=== PATIENT | male | born 1960 | race Caucasian/White ===

== ENCOUNTER 2017-04-27 14:15 | Inpatient (IN) | payer OTHER ==
[~2017-04-27] VITALS: Ht 170.2 cm; Wt 81.0 kg
[2017-04-27] MEDS ORDERED: TIOT185 IH (14:24)
[2017-04-27] MEDS ORDERED: WARF3TAB29 PO (14:24)
[2017-04-27] MEDS ORDERED: AMLO-512 PO (14:24)
[2017-04-27] MEDS ORDERED: DOXY150T PO (14:24)
[2017-04-27] MEDS ORDERED: ALBU8.5H8 IH (14:24)
[2017-04-27] MEDS ORDERED: OMEP20 PO (14:24)
[2017-04-27] MEDS ORDERED: PRED20 PO (14:24)
[2017-04-27] MEDS ORDERED: HYDR25TA PO (14:24)
[2017-04-27] MEDS ORDERED: METH10 PO (14:24)
[2017-04-27] MEDS ORDERED: GABA-531 PO (14:24)
[2017-04-27] MEDS ORDERED: MONT10TA21 PO (14:24)
[2017-04-27] MEDS ORDERED: METO25 PO (14:24)
[2017-04-27] MEDS ORDERED: MOME13HF2 IH (14:24)
[2017-04-27] MEDS ORDERED: 0.9% SODIUM CHLORIDE 15 ML NEB SOLUTION NEB ONE ×2 (15:58→16:51)
[2017-04-27] MEDS ORDERED: IPRATROPIUM BROMIDE 0.5 MG/2.5 ML NEB SOLUTION NEB ONE (16:00)
[2017-04-27] MEDS ORDERED: MethylPREDNISolone SOD SUCC 125 MG/2 ML VIAL IVP ONE (16:00)
[2017-04-27] MEDS ORDERED: ALBUTEROL SULFATE 5 MG/ML 20 ML NEB SOLN [BULK] NEB ONE (16:00)
[2017-04-27 16:39] LABS: BASOPHILS # (AUTO) 0.07 K/uL (0.00-0.20); BASOPHILS % (AUTO) 0.4 % (0.0-2.0); EOSINOPHILS # (AUTO) 0.01 K/uL (0.00-0.70); EOSINOPHILS % (AUTO) 0.05 % (1.0-6.0); HEMATOCRIT 46.8 % (41-53); HEMOGLOBIN 15.5 g/dL (13.5-17.5); LYMPHOCYTES # (AUTO) 1.9 K/uL (1.0-4.8); LYMPHOCYTES % (AUTO) 9.7 % (22.0-44.0); MEAN CORPUSCULAR HEMOGLOBIN 29.6 pg (26.0-34.0); MEAN CORPUSCULAR HGB CONC 33.1 G/dL (31.0-37.0); MEAN CORPUSCULAR VOLUME 89 fL (80-100); MONOCYTES # (AUTO) 1.2 K/uL (0.1-1.0); MONOCYTES % (AUTO) 6.2 % (2.0-9.0); NEUTROPHILS # (AUTO) 16.1 K/uL (1.8-7.7); NEUTROPHILS % (AUTO) 83.6 % (40.0-70.0); PLATELET COUNT (AUTO) 319 K/uL (150-450); RED BLOOD CELL COUNT(AUTO) 5.23 MIL/uL (4.50-5.90); RED CELL DISTRIBUTION WIDTH 14.8 % (11.5-14.5); WHITE BLOOD COUNT (AUTO) 19.3 K/uL (4.5-11.0)
[2017-04-27 16:47] LABS: ANION GAP 7 mmol/L (8-16); CALCIUM, TOTAL 9.1 mg/dL (8.8-10.5); CARBON DIOXIDE 31 mmol/L (22-29); CHLORIDE 96 mmol/L (98-107); CREATININE 0.91 mg/dL (0.60-1.30); GLOMERULAR FILTR. RATE CALC > 60 mL/min (>60); POTASSIUM 3.3 mmol/L (3.5-5.1); SODIUM SERUM 134 mmol/L (136-145); UREA NITROGEN, BLOOD 12 mg/dL (7-18)
[2017-04-27 17:07] LABS: B-TYPE NATRIURETIC PEPTIDE 13 pg/mL (0-100)
[2017-04-27 17:55] LABS: INR 1.9 (0.9-1.1); PROTHROMBIN TIME 19.8 SEC (9.4-11.6)
[2017-04-27 18:17] LABS: ALANINE AMINOTRANSFERASE 24 U/L (12-78); ALBUMIN 3.9 g/dL (3.4-5.0); ASPARTATE AMINOTRANSFERASE 22 U/L (15-37); BILIRUBIN,TOTAL 0.4 mg/dL (0.1-1.0); CREATINE KINASE MB 2.6 ng/mL (0-5); CREATINE KINASE, TOTAL 100 U/L (39-308); TOTAL PROTEIN, SERUM 8.2 g/dL (6.4-8.2)
[2017-04-27] MEDS ORDERED: IOVERSOL 350 MG/ML 100 ML VIAL ONE (18:36)
[2017-04-27 19:57] LABS: APPEARANCE,URINE CLEAR (CLEAR); GLUCOSE, URINE (UA) NEGATIVE (NEGATIVE); KETONES,URINE TRACE mg/dL (NEGATIVE); LEUKOCYTE ESTERASE ,URINE NEGATIVE (NEGATIVE); OCCULT BLOOD,URINE NEGATIVE (NEGATIVE); PROTEIN,URINE NEGATIVE (NEGATIVE)
[2017-04-27 20:10] LABS: RBC,URINE None Seen /HPF (0-2); WBC,URINE None Seen /HPF (0-5)
[2017-04-27] MEDS ORDERED: ACETAMINOPHEN 325 MG TABLET PO PRN (20:30)
[2017-04-27] MEDS ORDERED: ONDANSETRON HCL 4 MG/2 ML VIAL IVP PRN (20:30)
[2017-04-27 21:11] VITALS: BP 131/84
[2017-04-27] MEDS ORDERED: ALBUTEROL SULFATE 2.5 MG/0.5 ML NEB SOLUTION NEB SCH (23:00)
[2017-04-27] MEDS ORDERED: IPRATROPIUM BROMIDE 0.5 MG/2.5 ML NEB SOLUTION NEB SCH (23:00)
[2017-04-27] MEDS ORDERED: 0.9% SODIUM CHLORIDE 5 ML NEB SOLUTION NEB ONE (23:59)
[2017-04-28] MEDS ORDERED: ACETAMINOPHEN 325 MG TABLET PO PRN
[2017-04-28] MEDS ORDERED: MORPHINE SULFATE 2 MG/ML SYRINGE IVP PRN
[2017-04-28] MEDS ORDERED: HYDROCODONE/ACETAMINOPHEN 5-325 MG TABLET PO PRN
[2017-04-28 00:07] VITALS: BP 128/82
[2017-04-28] MEDS ORDERED: SODIUM CHLORIDE 0.9% 500 ML IV ONE ×2 (00:12→16:39)
[2017-04-28] MEDS: AZITHROMYCIN 500 MG/NS 250 ML IV SCH (00:30)
[2017-04-28] MEDS: MethylPREDNISolone SOD SUCC 125 MG/2 ML VIAL IVP SCH ×3 (00:30→16:32)
[2017-04-28] MEDS: IPRATROPIUM BROMIDE 0.5 MG/2.5 ML NEB SOLUTION NEB PRN ×6 (00:33→23:16)
[2017-04-28] MEDS: ALBUTEROL SULFATE 2.5 MG/0.5 ML NEB SOLUTION NEB PRN ×6 (00:33→23:16)
[2017-04-28] MEDS: CefTRIAXone 1 GM/DEXTROSE 50 ML IV SCH (01:58)
[2017-04-28 03:30] VITALS: BP 140/77
[2017-04-28 07:45] VITALS: BP 143/73
[2017-04-28] MEDS ORDERED: OMEPRAZOLE 20 MG CAPSULE PO SCH (09:00)
[2017-04-28] MEDS ORDERED: AZITHROMYCIN 250 MG TABLET PO SCH (09:00)
[2017-04-28] MEDS ORDERED: ALBUTEROL SULFATE HFA 90 MCG/PUFF 8 GM INHALER IH PRN (09:15)
[2017-04-28] MEDS: OMEPRAZOLE 20 MG CAPSULE PO SCH (10:00)
[2017-04-28 10:06] LABS: BASOPHILS # (AUTO) 0.03 K/uL (0.00-0.20); BASOPHILS % (AUTO) 0.2 % (0.0-2.0); EOSINOPHILS % (AUTO) 0.01 % (1.0-6.0); HEMATOCRIT 42.6 % (41-53); HEMOGLOBIN 14.5 g/dL (13.5-17.5); LYMPHOCYTES # (AUTO) 0.6 K/uL (1.0-4.8); LYMPHOCYTES % (AUTO) 2.8 % (22.0-44.0); MEAN CORPUSCULAR HEMOGLOBIN 29.4 pg (26.0-34.0); MEAN CORPUSCULAR HGB CONC 33.9 G/dL (31.0-37.0); MEAN CORPUSCULAR VOLUME 87 fL (80-100); MONOCYTES # (AUTO) 0.3 K/uL (0.1-1.0); MONOCYTES % (AUTO) 1.5 % (2.0-9.0); NEUTROPHILS # (AUTO) 18.6 K/uL (1.8-7.7); PLATELET COUNT (AUTO) 304 K/uL (150-450); RED BLOOD CELL COUNT(AUTO) 4.92 MIL/uL (4.50-5.90); RED CELL DISTRIBUTION WIDTH 14.8 % (11.5-14.5); WHITE BLOOD COUNT (AUTO) 19.4 K/uL (4.5-11.0)
[2017-04-28 10:09] LABS: NEUTROPHILS % (AUTO) 95.5 % (40.0-70.0)
[2017-04-28 10:15] LABS: CARBON DIOXIDE 28 mmol/L (22-29); CHLORIDE 99 mmol/L (98-107); POTASSIUM 3.8 mmol/L (3.5-5.1); SODIUM SERUM 136 mmol/L (136-145)
[2017-04-28 10:16] LABS: ANION GAP 9 mmol/L (8-16); CREATININE 1.01 mg/dL (0.60-1.30); GLOMERULAR FILTR. RATE CALC > 60 mL/min (>60); UREA NITROGEN, BLOOD 10 mg/dL (7-18)
[2017-04-28 10:18] LABS: INR 1.6 (0.9-1.1); PROTHROMBIN TIME 17.1 SEC (9.4-11.6)
[2017-04-28] MEDS ORDERED: GABA-533 PO (10:59)
[2017-04-28] MEDS: ACETYLCYSTEINE 20% 200 MG/ML 4 ML NEB SOLUTION NEB SCH ×4 (11:00→23:16)
[2017-04-28] MEDS: AmLODIPine BESYLATE 10 MG TABLET PO SCH (11:28)
[2017-04-28] MEDS: METHADONE HCL 10 MG TABLET PO SCH (11:28)
[2017-04-28] MEDS: HYDROCHLOROTHIAZIDE 25 MG TABLET PO SCH (11:28)
[2017-04-28] MEDS: METOPROLOL TARTRATE 25 MG TABLET PO SCH ×2 (11:28→19:53)
[2017-04-28] MEDS: MONTELUKAST SODIUM 10 MG TABLET PO SCH (11:29)
[2017-04-28 11:30] VITALS: BP 139/75
[2017-04-28] MEDS: TIOTROPIUM BROMIDE 18 MCG/INH HANDIHALER [5] IH SCH (11:30)
[2017-04-28 16:00] VITALS: BP 146/65
[2017-04-28] MEDS ORDERED: 0.9% SODIUM CHLORIDE 5 ML NEB SOLUTION NEB ONE (16:22)
[2017-04-28] MEDS: GABAPENTIN 400 MG CAPSULE PO SCH ×2 (16:32→19:53)
[2017-04-28] MEDS: WARFARIN SODIUM 3 MG TABLET PO SCH (17:00)
[2017-04-28 17:48] LABS: ABG A-A DIFF O2 175.9 mmHg (10-20.0); ABG BASE EXCESS 6.1 mmol/L (-2.0-3.0); ABG HCO3 28.9 mmol/L (22.0-26.0); ABG OXYHEMOGLOBIN 90.4 % (94.0-100.0); ABG PCO2 45 mmHg (35-45); ABG PH 7.443 (7.35-7.450); TEMPERATURE, FAHRENHEIT, BG 97.6 FAHREN (96.0-98.6)
[2017-04-28 17:49] LABS: ALLEN TEST, BLOOD GAS Positive
[2017-04-28 19:35] VITALS: BP 150/92
[2017-04-28] MEDS: BUDESONIDE 0.5 MG/2 ML NEB SOLUTION NEB SCH (20:06)
[2017-04-29] VITALS (7 sets, daily range): BP systolic 126–163; BP diastolic 60–97
[2017-04-29] MEDS: CefTRIAXone 1 GM/DEXTROSE 50 ML IV SCH (00:11)
[2017-04-29] MEDS: MethylPREDNISolone SOD SUCC 125 MG/2 ML VIAL IVP SCH ×3 (00:11→18:01)
[2017-04-29] MEDS: ALBUTEROL SULFATE 2.5 MG/0.5 ML NEB SOLUTION NEB PRN ×6 (02:57→22:57)
[2017-04-29] MEDS: IPRATROPIUM BROMIDE 0.5 MG/2.5 ML NEB SOLUTION NEB PRN ×6 (02:57→22:56)
[2017-04-29] MEDS: ACETYLCYSTEINE 20% 200 MG/ML 4 ML NEB SOLUTION NEB SCH ×6 (03:00→22:55)
[2017-04-29] MEDS: AZITHROMYCIN 500 MG/NS 250 ML IV SCH (05:02)
[2017-04-29 06:17] LABS: EOSINOPHILS % (AUTO) 0 % (1.0-6.0); HEMATOCRIT 42.6 % (41-53); HEMOGLOBIN 14.3 g/dL (13.5-17.5); LYMPHOCYTES # (AUTO) 0.9 K/uL (1.0-4.8); LYMPHOCYTES % (AUTO) 3.3 % (22.0-44.0); MEAN CORPUSCULAR HEMOGLOBIN 29.9 pg (26.0-34.0); MEAN CORPUSCULAR HGB CONC 33.6 G/dL (31.0-37.0); MEAN CORPUSCULAR VOLUME 89 fL (80-100); MONOCYTES # (AUTO) 1.2 K/uL (0.1-1.0); MONOCYTES % (AUTO) 4.4 % (2.0-9.0); NEUTROPHILS # (AUTO) 25.1 K/uL (1.8-7.7); PLATELET COUNT (AUTO) 323 K/uL (150-450); RED BLOOD CELL COUNT(AUTO) 4.78 MIL/uL (4.50-5.90); RED CELL DISTRIBUTION WIDTH 14.8 % (11.5-14.5); WHITE BLOOD COUNT (AUTO) 27.2 K/uL (4.5-11.0)
[2017-04-29 06:19] LABS: INR 1.4 (0.9-1.1)
[2017-04-29 06:49] LABS: ANION GAP 9 mmol/L (8-16); CALCIUM, TOTAL 9.1 mg/dL (8.8-10.5); CARBON DIOXIDE 29 mmol/L (22-29); CHLORIDE 98 mmol/L (98-107); CREATININE 0.79 mg/dL (0.60-1.30); GLOMERULAR FILTR. RATE CALC > 60 mL/min (>60); PHOSPHORUS 3.4 mg/dL (2.5-4.9); POTASSIUM 3.8 mmol/L (3.5-5.1); SODIUM SERUM 136 mmol/L (136-145); UREA NITROGEN, BLOOD 13 mg/dL (7-18)
[2017-04-29 06:55] LABS: NEUTROPHILS % (AUTO) 92.3 % (40.0-70.0)
[2017-04-29] MEDS: BUDESONIDE 0.5 MG/2 ML NEB SOLUTION NEB SCH ×2 (07:52→19:54)
[2017-04-29] MEDS ORDERED: *CLINICAL-WARFARIN SODIUM DOSING CLINICAL ONE ×2 (09:15)
[2017-04-29] MEDS: TIOTROPIUM BROMIDE 18 MCG/INH HANDIHALER [5] IH SCH (09:26)
[2017-04-29] MEDS: METHADONE HCL 10 MG TABLET PO SCH (09:28)
[2017-04-29] MEDS: METOPROLOL TARTRATE 25 MG TABLET PO SCH ×2 (09:28→20:20)
[2017-04-29] MEDS: OMEPRAZOLE 20 MG CAPSULE PO SCH (09:29)
[2017-04-29] MEDS: MONTELUKAST SODIUM 10 MG TABLET PO SCH (09:29)
[2017-04-29] MEDS: HYDROCHLOROTHIAZIDE 25 MG TABLET PO SCH (09:29)
[2017-04-29] MEDS: AmLODIPine BESYLATE 10 MG TABLET PO SCH (09:29)
[2017-04-29] MEDS: GABAPENTIN 400 MG CAPSULE PO SCH ×3 (09:29→20:20)
[2017-04-29] MEDS: WARFARIN SODIUM 3 MG TABLET PO SCH (18:01)
[2017-04-30] MEDS: CefTRIAXone 1 GM/DEXTROSE 50 ML IV SCH (00:05)
[2017-04-30] MEDS: MethylPREDNISolone SOD SUCC 125 MG/2 ML VIAL IVP SCH ×4 (00:05→23:24)
[2017-04-30] MEDS: ACETYLCYSTEINE 20% 200 MG/ML 4 ML NEB SOLUTION NEB SCH ×6 (03:21→23:02)
[2017-04-30] MEDS: ALBUTEROL SULFATE 2.5 MG/0.5 ML NEB SOLUTION NEB PRN ×6 (03:21→23:02)
[2017-04-30] MEDS: IPRATROPIUM BROMIDE 0.5 MG/2.5 ML NEB SOLUTION NEB PRN ×4 (03:21→23:02)
[2017-04-30 05:05] VITALS: BP 137/93
[2017-04-30] MEDS: AZITHROMYCIN 500 MG/NS 250 ML IV SCH (05:53)
[2017-04-30 07:00] VITALS: BP 147/85
[2017-04-30] MEDS: BUDESONIDE 0.5 MG/2 ML NEB SOLUTION NEB SCH ×2 (07:51→19:27)
[2017-04-30] MEDS: METHADONE HCL 10 MG TABLET PO SCH (08:07)
[2017-04-30] MEDS: OMEPRAZOLE 20 MG CAPSULE PO SCH (08:07)
[2017-04-30] MEDS: TIOTROPIUM BROMIDE 18 MCG/INH HANDIHALER [5] IH SCH (08:07)
[2017-04-30] MEDS: METOPROLOL TARTRATE 25 MG TABLET PO SCH ×2 (08:08→20:19)
[2017-04-30] MEDS: GABAPENTIN 400 MG CAPSULE PO SCH ×3 (08:08→20:19)
[2017-04-30] MEDS: MONTELUKAST SODIUM 10 MG TABLET PO SCH (08:08)
[2017-04-30] MEDS: HYDROCHLOROTHIAZIDE 25 MG TABLET PO SCH (08:08)
[2017-04-30] MEDS: AmLODIPine BESYLATE 10 MG TABLET PO SCH (08:08)
[2017-04-30 11:35] VITALS: BP 147/74
[2017-04-30 12:30] LABS: INR 1.2 (0.9-1.1); PROTHROMBIN TIME 12.6 SEC (9.4-11.6)
[2017-04-30] MEDS ORDERED: WARFARIN SODIUM-INR 2.0-3.0-RX DOSING PER PROTOCOL PO PRN (13:15)
[2017-04-30] MEDS: GuaiFENesin SR 600 MG ER TABLET PO SCH ×2 (14:11→20:19)
[2017-04-30 15:51] VITALS: BP 142/79
[2017-04-30] MEDS ORDERED: WARFARIN SODIUM 2 MG TABLET PO ONE (17:00)
[2017-04-30] MEDS ORDERED: WARFARIN SODIUM 7.5 MG TABLET PO ONE (17:00)
[2017-04-30 20:00] VITALS: BP 159/89
[2017-04-30 23:57] VITALS: BP 125/68
[2017-05-01] MEDS: ACETYLCYSTEINE 20% 200 MG/ML 4 ML NEB SOLUTION NEB SCH ×6 (03:03→22:56)
[2017-05-01] MEDS: IPRATROPIUM BROMIDE 0.5 MG/2.5 ML NEB SOLUTION NEB PRN ×5 (03:03→22:56)
[2017-05-01] MEDS: ALBUTEROL SULFATE 2.5 MG/0.5 ML NEB SOLUTION NEB PRN ×6 (03:03→22:56)
[2017-05-01 04:00] VITALS: BP 150/84
[2017-05-01] MEDS: AZITHROMYCIN 500 MG/NS 250 ML IV SCH (04:04)
[2017-05-01] MEDS: CefTRIAXone 1 GM/DEXTROSE 50 ML IV SCH (04:06)
[2017-05-01 06:35] LABS: INR 1.4 (0.9-1.1); PROTHROMBIN TIME 15.2 SEC (9.4-11.6)
[2017-05-01] MEDS: BUDESONIDE 0.5 MG/2 ML NEB SOLUTION NEB SCH ×2 (07:43→19:37)
[2017-05-01 07:54] VITALS: BP 146/85
[2017-05-01] MEDS: METHADONE HCL 10 MG TABLET PO SCH (07:59)
[2017-05-01] MEDS: TIOTROPIUM BROMIDE 18 MCG/INH HANDIHALER [5] IH SCH (07:59)
[2017-05-01] MEDS: MethylPREDNISolone SOD SUCC 125 MG/2 ML VIAL IVP SCH ×3 (07:59→23:56)
[2017-05-01] MEDS: METOPROLOL TARTRATE 25 MG TABLET PO SCH ×2 (08:00→20:45)
[2017-05-01] MEDS: GuaiFENesin SR 600 MG ER TABLET PO SCH ×2 (08:00→20:45)
[2017-05-01] MEDS: AmLODIPine BESYLATE 10 MG TABLET PO SCH (08:00)
[2017-05-01] MEDS: GABAPENTIN 400 MG CAPSULE PO SCH ×3 (08:00→20:45)
[2017-05-01] MEDS: HYDROCHLOROTHIAZIDE 25 MG TABLET PO SCH (08:00)
[2017-05-01] MEDS: MONTELUKAST SODIUM 10 MG TABLET PO SCH (08:01)
[2017-05-01] MEDS: OMEPRAZOLE 20 MG CAPSULE PO SCH (08:02)
[2017-05-01 11:46] VITALS: BP 144/90
[2017-05-01 15:00] VITALS: BP 139/87
[2017-05-01] MEDS ORDERED: WARFARIN SODIUM 7.5 MG TABLET PO ONE (17:00)
[2017-05-01 17:29] LABS: ORGANISM ID Not indicated.
[2017-05-01 19:30] VITALS: BP 131/88
[2017-05-01 23:48] VITALS: BP 126/78
[2017-05-02] MEDS: CefTRIAXone 1 GM/DEXTROSE 50 ML IV SCH ×2 (00:04→23:53)
[2017-05-02] MEDS: ACETYLCYSTEINE 20% 200 MG/ML 4 ML NEB SOLUTION NEB SCH ×6 (03:20→23:16)
[2017-05-02] MEDS: ALBUTEROL SULFATE 2.5 MG/0.5 ML NEB SOLUTION NEB PRN ×5 (03:20→23:15)
[2017-05-02 04:47] VITALS: BP 138/76
[2017-05-02] MEDS: AZITHROMYCIN 500 MG/NS 250 ML IV SCH (05:14)
[2017-05-02 05:53] LABS: INR 2.1 (0.9-1.1); PROTHROMBIN TIME 21.7 SEC (9.4-11.6)
[2017-05-02 06:04] LABS: BASOPHILS # (AUTO) 0.01 K/uL (0.00-0.20); EOSINOPHILS % (AUTO) 0 % (1.0-6.0); HEMATOCRIT 41.2 % (41-53); LYMPHOCYTES # (AUTO) 0.6 K/uL (1.0-4.8); MEAN CORPUSCULAR HEMOGLOBIN 29.7 pg (26.0-34.0); MEAN CORPUSCULAR HGB CONC 34.1 G/dL (31.0-37.0); MEAN CORPUSCULAR VOLUME 87 fL (80-100); MONOCYTES # (AUTO) 0.4 K/uL (0.1-1.0); NEUTROPHILS # (AUTO) 18.2 K/uL (1.8-7.7); PLATELET COUNT (AUTO) 320 K/uL (150-450); RED BLOOD CELL COUNT(AUTO) 4.73 MIL/uL (4.50-5.90); RED CELL DISTRIBUTION WIDTH 14.4 % (11.5-14.5); WHITE BLOOD COUNT (AUTO) 19.2 K/uL (4.5-11.0)
[2017-05-02 06:07] LABS: ANION GAP 4 mmol/L (8-16); CALCIUM, TOTAL 8.9 mg/dL (8.8-10.5); CARBON DIOXIDE 32 mmol/L (22-29); CHLORIDE 101 mmol/L (98-107); CREATININE 1.05 mg/dL (0.60-1.30); GLOMERULAR FILTR. RATE CALC > 60 mL/min (>60); POTASSIUM 4.3 mmol/L (3.5-5.1); SODIUM SERUM 137 mmol/L (136-145); UREA NITROGEN, BLOOD 23 mg/dL (7-18)
[2017-05-02 06:13] LABS: NEUTROPHILS % (AUTO) 94.9 % (40.0-70.0)
[2017-05-02] MEDS: MethylPREDNISolone SOD SUCC 125 MG/2 ML VIAL IVP SCH ×3 (07:48→23:53)
[2017-05-02] MEDS: TIOTROPIUM BROMIDE 18 MCG/INH HANDIHALER [5] IH SCH (07:48)
[2017-05-02] MEDS: OMEPRAZOLE 20 MG CAPSULE PO SCH (07:48)
[2017-05-02] MEDS: AmLODIPine BESYLATE 10 MG TABLET PO SCH (07:48)
[2017-05-02] MEDS: HYDROCHLOROTHIAZIDE 25 MG TABLET PO SCH (07:48)
[2017-05-02] MEDS: MONTELUKAST SODIUM 10 MG TABLET PO SCH (07:48)
[2017-05-02] MEDS: METOPROLOL TARTRATE 25 MG TABLET PO SCH ×2 (07:48→20:19)
[2017-05-02] MEDS: GABAPENTIN 400 MG CAPSULE PO SCH ×3 (07:48→20:19)
[2017-05-02] MEDS: METHADONE HCL 10 MG TABLET PO SCH (07:48)
[2017-05-02] MEDS: GuaiFENesin SR 600 MG ER TABLET PO SCH ×2 (07:49→20:19)
[2017-05-02] MEDS: IPRATROPIUM BROMIDE 0.5 MG/2.5 ML NEB SOLUTION NEB PRN ×2 (08:02→12:06)
[2017-05-02] MEDS: BUDESONIDE 0.5 MG/2 ML NEB SOLUTION NEB SCH ×2 (08:02→19:29)
[2017-05-02 08:04] VITALS: BP 128/76
[2017-05-02 15:26] VITALS: BP 153/76
[2017-05-02] MEDS: WARFARIN SODIUM 3 MG TABLET PO SCH (16:57)
[2017-05-02 19:32] VITALS: BP 157/88
[2017-05-02 23:36] VITALS: BP 137/75
[2017-05-03] MEDS: ALBUTEROL SULFATE 2.5 MG/0.5 ML NEB SOLUTION NEB PRN ×5 (02:27→20:31)
[2017-05-03] MEDS: ACETYLCYSTEINE 20% 200 MG/ML 4 ML NEB SOLUTION NEB SCH ×6 (02:28→23:00)
[2017-05-03] MEDS: AZITHROMYCIN 500 MG/NS 250 ML IV SCH (04:21)
[2017-05-03 04:28] VITALS: BP 137/73
[2017-05-03 07:12] LABS: INR 2.6 (0.9-1.1); PROTHROMBIN TIME 27.8 SEC (9.4-11.6)
[2017-05-03 07:35] VITALS: BP 131/85
[2017-05-03] MEDS: BUDESONIDE 0.5 MG/2 ML NEB SOLUTION NEB SCH ×2 (08:07→20:31)
[2017-05-03] MEDS: IPRATROPIUM BROMIDE 0.5 MG/2.5 ML NEB SOLUTION NEB PRN ×4 (08:13→20:31)
[2017-05-03] MEDS: TIOTROPIUM BROMIDE 18 MCG/INH HANDIHALER [5] IH SCH (08:37)
[2017-05-03] MEDS: MONTELUKAST SODIUM 10 MG TABLET PO SCH (08:37)
[2017-05-03] MEDS: GuaiFENesin SR 600 MG ER TABLET PO SCH ×2 (08:39→20:29)
[2017-05-03] MEDS: METOPROLOL TARTRATE 25 MG TABLET PO SCH ×2 (08:39→20:29)
[2017-05-03] MEDS: PredniSONE 20 MG TABLET PO SCH (08:39)
[2017-05-03] MEDS: AmLODIPine BESYLATE 10 MG TABLET PO SCH (08:39)
[2017-05-03] MEDS: METHADONE HCL 10 MG TABLET PO SCH (08:39)
[2017-05-03] MEDS: HYDROCHLOROTHIAZIDE 25 MG TABLET PO SCH (08:40)
[2017-05-03] MEDS: OMEPRAZOLE 20 MG CAPSULE PO SCH (08:40)
[2017-05-03] MEDS: GABAPENTIN 400 MG CAPSULE PO SCH ×3 (08:40→20:28)
[2017-05-03 11:33] VITALS: BP 139/82
[2017-05-03 16:08] VITALS: BP 137/76
[2017-05-03] MEDS: WARFARIN SODIUM 3 MG TABLET PO SCH (17:02)
[2017-05-03 19:37] VITALS: BP 147/79
[2017-05-03 20:56] LABS: ABG A-A DIFF O2 39.4 mmHg (10-20.0); ABG BASE EXCESS 5.5 mmol/L (-2.0-3.0); ABG HCO3 28.5 mmol/L (22.0-26.0); ABG OXYHEMOGLOBIN 88.7 % (94.0-100.0); ABG PCO2 44 mmHg (35-45); ABG PH 7.443 (7.35-7.450); TEMPERATURE, FAHRENHEIT, BG 98.7 FAHREN (96.0-98.6)
[2017-05-03 21:00] LABS: ALLEN TEST, BLOOD GAS Positive
[2017-05-03 23:03] VITALS: BP 141/81
[2017-05-04] MEDS: CefTRIAXone 1 GM/DEXTROSE 50 ML IV SCH (01:33)
[2017-05-04 04:30] VITALS: BP 143/79
[2017-05-04] MEDS: ACETYLCYSTEINE 20% 200 MG/ML 4 ML NEB SOLUTION NEB SCH ×6 (04:34→23:21)
[2017-05-04] MEDS: ALBUTEROL SULFATE 2.5 MG/0.5 ML NEB SOLUTION NEB PRN ×6 (04:34→23:22)
[2017-05-04] MEDS: IPRATROPIUM BROMIDE 0.5 MG/2.5 ML NEB SOLUTION NEB PRN ×6 (04:34→23:22)
[2017-05-04] MEDS: AZITHROMYCIN 500 MG/NS 250 ML IV SCH (04:50)
[2017-05-04 06:50] LABS: INR 2.8 (0.9-1.1); PROTHROMBIN TIME 29.4 SEC (9.4-11.6)
[2017-05-04 07:07] VITALS: BP 141/87
[2017-05-04] MEDS: METHADONE HCL 10 MG TABLET PO SCH (08:51)
[2017-05-04] MEDS: GABAPENTIN 400 MG CAPSULE PO SCH ×3 (08:51→20:05)
[2017-05-04] MEDS: PredniSONE 20 MG TABLET PO SCH (08:52)
[2017-05-04] MEDS: MONTELUKAST SODIUM 10 MG TABLET PO SCH (08:52)
[2017-05-04] MEDS: HYDROCHLOROTHIAZIDE 25 MG TABLET PO SCH (08:52)
[2017-05-04] MEDS: AmLODIPine BESYLATE 10 MG TABLET PO SCH (08:52)
[2017-05-04] MEDS: METOPROLOL TARTRATE 25 MG TABLET PO SCH ×2 (08:53→20:05)
[2017-05-04] MEDS: GuaiFENesin SR 600 MG ER TABLET PO SCH ×2 (08:53→20:05)
[2017-05-04] MEDS: OMEPRAZOLE 20 MG CAPSULE PO SCH (08:53)
[2017-05-04] MEDS: BUDESONIDE 0.5 MG/2 ML NEB SOLUTION NEB SCH ×2 (08:56→19:22)
[2017-05-04 11:30] VITALS: BP 139/85
[2017-05-04] MEDS: TIOTROPIUM BROMIDE 18 MCG/INH HANDIHALER [5] IH SCH (16:46)
[2017-05-04] MEDS: WARFARIN SODIUM 3 MG TABLET PO SCH (16:49)
[2017-05-04 17:10] LABS: COCCI IGG TITER COMP.FIX-KERN <1:2; COCCIOIDES AB IGG (ID)-KERN Non Reactive; COCCIOIDES AB IGM (ID)-KERN Non Reactive
[2017-05-04 19:15] VITALS: BP 142/88
[2017-05-04] MEDS ORDERED: AMOX TR/POT CLAV 875 MG/125 MG TABLET PO SCH (21:00)
[2017-05-05 00:03] LABS: MYCOPLASMA AB IGG 103 U/mL (0-99)
[2017-05-05 00:06] VITALS: BP 118/84
[2017-05-05] MEDS: ALBUTEROL SULFATE 2.5 MG/0.5 ML NEB SOLUTION NEB PRN (02:30)
[2017-05-05] MEDS: ACETYLCYSTEINE 20% 200 MG/ML 4 ML NEB SOLUTION NEB SCH ×2 (02:30→07:00)
[2017-05-05] MEDS: IPRATROPIUM BROMIDE 0.5 MG/2.5 ML NEB SOLUTION NEB PRN (02:30)
[2017-05-05 04:21] VITALS: BP 126/74
== END 2017-05-05 06:40 | disposition home or self-care (01) | DRG 133 ==
LOC: EMS 14:15 → 6N 20:26
PROVIDERS: ADMIT Hospitalist; ATTEND Hospitalist
DX: J96.01 Acute respiratory failure with hypoxia (principal); D68.59 Other primary thrombophilia; J44.0 Chronic obstructive pulmonary disease with (acute) lower respiratory infection; J45.901 Unspecified asthma with (acute) exacerbation; J44.1 Chronic obstructive pulmonary disease with (acute) exacerbation; J20.9 Acute bronchitis, unspecified; I10 Essential (primary) hypertension; F17.210 Nicotine dependence, cigarettes, uncomplicated; D72.829 Elevated white blood cell count, unspecified; Z79.01 Long term (current) use of anticoagulants; Z86.718 Personal history of other venous thrombosis and embolism; Z79.899 Other long term (current) drug therapy; Z79.84 Long term (current) use of oral hypoglycemic drugs; Z59.0 Homelessness; Z86.73 Personal history of transient ischemic attack (TIA), and cerebral infarction without residual deficits; Z86.11 Personal history of tuberculosis
CPT/HCPCS: 71275; 80307; 82805; 84100; 86171; 86480; 87015; 87449; 87798; 87899; 93005; 93306; 94060; 94640; 94644; 96374; 99291; J0456; J0696; J2930; J7040

== ENCOUNTER 2017-05-11 05:56 | Day surgery (SDC) | payer OTHER ==
[~2017-05-11] VITALS: Ht 170.2 cm; Wt 79.5 kg
[~2017-05-11 05:56] MED LIST: ALBU8.5H8 IH; AMLO-512 PO; GABA-533 PO; HYDR25TA PO; METH10 PO; METO25 PO; MOME13HF2 IH; MONT10TA21 PO; OMEP20 PO; TIOT185 IH; WARF3TAB29 PO
[2017-05-11] MEDS ORDERED: BENZOCAINE 20% 50 MCG/SPRAY 57 GM TP ONE (05:57)
[2017-05-11] MEDS ORDERED: ALBUTEROL SULFATE 2.5 MG/0.5 ML NEB SOLUTION NEB ONE (05:57)
[2017-05-11] MEDS ORDERED: LIDOCAINE HCL 2% 30 ML JELLY TP ONE (05:57)
[2017-05-11] MEDS ORDERED: LIDOCAINE HCL 4% 50 ML SOLUTION TP ONE (05:57)
[2017-05-11] MEDS ORDERED: SODIUM CHLORIDE 0.9% 1,000 ML IV ONE ×2 (06:09→07:00)
[2017-05-11] MEDS ORDERED: PRED20 PO (06:54)
[2017-05-11] MEDS ORDERED: MIDAZOLAM HCL 2 MG/2 ML VIAL ONE (07:24)
[2017-05-11] MEDS ORDERED: FentaNYL CITRATE-PF 100 MCG/2 ML VIAL ONE (07:24)
[2017-05-11] MEDS ORDERED: MethylPREDNISolone SOD SUCC 125 MG/2 ML VIAL IVP ONE (08:30)
[2017-05-11] MEDS ORDERED: MethylPREDNISolone SOD SUCC 125 MG/2 ML VIAL ONE (08:53)
[2017-05-11] MEDS ORDERED: HYDROmorphone 2 MG/ML SYRINGE ONE (09:12)
[2017-05-11] MEDS ORDERED: OXYGEN THERAPY IH SCH (20:00)
== END 2017-05-11 09:45 | disposition home or self-care (01) ==
LOC: SURGERY 05:56
PROVIDERS: ATTEND Internal Medicine Critical Care Medicine
DX: J38.4 Edema of larynx (principal); B37.0 Candidal stomatitis; I10 Essential (primary) hypertension; Z79.899 Other long term (current) drug therapy; Z90.49 Acquired absence of other specified parts of digestive tract; Z90.89 Acquired absence of other organs; Z87.891 Personal history of nicotine dependence
CPT/HCPCS: 31623; 31624; 71010; 87015 ×2; 87070; 87101; 87205; 87220; 88108; 88312; J1170; J2250; J2930; J3010; J7030

== ENCOUNTER 2017-06-09 06:46 | Inpatient (IN) | payer OTHER ==
[~2017-06-09] VITALS: Ht 170.2 cm; Wt 81.0 kg
[~2017-06-09 06:46] MED LIST changes: +PRED20 PO
[2017-06-09] MEDS ORDERED: PredniSONE 20 MG TABLET PO ONE ×2 (07:00→07:15)
[2017-06-09] MEDS ORDERED: ALBUTEROL SULFATE 5 MG/ML 20 ML NEB SOLN [BULK] NEB ONE (07:00)
[2017-06-09] MEDS ORDERED: IPRATROPIUM BROMIDE 0.5 MG/2.5 ML NEB SOLUTION NEB ONE (07:00)
[2017-06-09] MEDS ORDERED: 0.9% SODIUM CHLORIDE 15 ML NEB SOLUTION NEB ONE (07:38)
[2017-06-09 09:55] LABS: EOSINOPHILS % (AUTO) 0.01 % (1.0-6.0); HEMATOCRIT 41.3 % (41-53); LYMPHOCYTES # (AUTO) 0.8 K/uL (1.0-4.8); LYMPHOCYTES % (AUTO) 9.2 % (22.0-44.0); MEAN CORPUSCULAR HEMOGLOBIN 29.5 pg (26.0-34.0); MEAN CORPUSCULAR HGB CONC 33.9 G/dL (31.0-37.0); MEAN CORPUSCULAR VOLUME 87 fL (80-100); MONOCYTES # (AUTO) 0.4 K/uL (0.1-1.0); MONOCYTES % (AUTO) 4.3 % (2.0-9.0); NEUTROPHILS # (AUTO) 7.7 K/uL (1.8-7.7); PLATELET COUNT (AUTO) 204 K/uL (150-450); RED BLOOD CELL COUNT(AUTO) 4.74 MIL/uL (4.50-5.90); RED CELL DISTRIBUTION WIDTH 14.3 % (11.5-14.5); WHITE BLOOD COUNT (AUTO) 8.9 K/uL (4.5-11.0)
[2017-06-09 09:57] LABS: NEUTROPHILS % (AUTO) 86.4 % (40.0-70.0)
[2017-06-09 10:04] LABS: ANION GAP 9 mmol/L (8-16); CALCIUM, TOTAL 8.6 mg/dL (8.8-10.5); CARBON DIOXIDE 30 mmol/L (22-29); CHLORIDE 95 mmol/L (98-107); CREATININE 0.97 mg/dL (0.60-1.30); GLOMERULAR FILTR. RATE CALC > 60 mL/min (>60); POTASSIUM 3.7 mmol/L (3.5-5.1); SODIUM SERUM 134 mmol/L (136-145); UREA NITROGEN, BLOOD 11 mg/dL (7-18)
[2017-06-09 10:10] LABS: ALANINE AMINOTRANSFERASE 30 U/L (12-78); ALBUMIN 4.1 g/dL (3.4-5.0); ASPARTATE AMINOTRANSFERASE 28 U/L (15-37); BILIRUBIN,TOTAL 0.4 mg/dL (0.1-1.0); TOTAL PROTEIN, SERUM 7.5 g/dL (6.4-8.2)
[2017-06-09 11:19] LABS: ABG A-A DIFF O2 49.4 mmHg (10-20.0); ABG BASE EXCESS 1.9 mmol/L (-2.0-3.0); ABG HCO3 25.6 mmol/L (22.0-26.0); ABG OXYHEMOGLOBIN 83.2 % (94.0-100.0); ABG PCO2 43 mmHg (35-45)
[2017-06-09 11:20] LABS: ALLEN TEST, BLOOD GAS Positive
[2017-06-09] MEDS ORDERED: METHADONE HCL 10 MG TABLET PO ONE (13:00)
[2017-06-09] MEDS ORDERED: MAGNESIUM HYDROXIDE SUSPENSION 30 ML UDCUP PO PRN (14:15)
[2017-06-09] MEDS ORDERED: ACETAMINOPHEN 325 MG TABLET PO PRN (14:15)
[2017-06-09] MEDS ORDERED: ALBUTEROL SULFATE 2.5 MG/0.5 ML NEB SOLUTION NEB PRN (14:15)
[2017-06-09] MEDS ORDERED: IPRATROPIUM BROMIDE 0.5 MG/2.5 ML NEB SOLUTION NEB PRN (14:15)
[2017-06-09] MEDS: PANTOPRAZOLE SODIUM 40 MG DR TABLET PO SCH (14:29)
[2017-06-09 15:20] VITALS: BP 171/84
[2017-06-09] MEDS: AZITHROMYCIN 500 MG/NS 250 ML IV SCH (16:30)
[2017-06-09] MEDS: HEPARIN SODIUM,PORCINE 5,000 UNITS/ML VIAL SQ SCH ×2 (16:30→23:45)
[2017-06-09] MEDS: OXYGEN THERAPY IH SCH (17:13)
[2017-06-09] MEDS: MethylPREDNISolone SOD SUCC 125 MG/2 ML VIAL IVP SCH ×2 (18:25→23:45)
[2017-06-09] MEDS: IPRATROPIUM BROMIDE 0.5 MG/2.5 ML NEB SOLUTION NEB SCH ×2 (19:53→23:52)
[2017-06-09] MEDS: ALBUTEROL SULFATE 2.5 MG/0.5 ML NEB SOLUTION NEB SCH ×2 (19:53→23:52)
[2017-06-09 20:03] VITALS: BP 131/84
[2017-06-09] MEDS: DOCUSATE SODIUM 100 MG CAPSULE PO SCH (21:00)
[2017-06-09 23:34] VITALS: BP 129/78
[2017-06-10] MEDS: ALBUTEROL SULFATE 2.5 MG/0.5 ML NEB SOLUTION NEB SCH ×6 (03:52→23:20)
[2017-06-10] MEDS: IPRATROPIUM BROMIDE 0.5 MG/2.5 ML NEB SOLUTION NEB SCH ×6 (03:52→23:20)
[2017-06-10 04:47] VITALS: BP 139/86
[2017-06-10] MEDS: MethylPREDNISolone SOD SUCC 125 MG/2 ML VIAL IVP SCH ×4 (05:55→23:29)
[2017-06-10 07:24] VITALS: BP 132/78
[2017-06-10] MEDS: OXYGEN THERAPY IH SCH ×2 (08:51→23:20)
[2017-06-10] MEDS: DOCUSATE SODIUM 100 MG CAPSULE PO SCH ×2 (09:45→19:52)
[2017-06-10] MEDS: PANTOPRAZOLE SODIUM 40 MG DR TABLET PO SCH (09:45)
[2017-06-10] MEDS: METHADONE HCL 10 MG TABLET PO SCH (09:46)
[2017-06-10] MEDS ORDERED: *CLINICAL-WARFARIN SODIUM DOSING CLINICAL ONE ×2 (10:00)
[2017-06-10 10:19] LABS: INR 2.1 (0.9-1.1); PROTHROMBIN TIME 22.3 SEC (9.4-11.6)
[2017-06-10 11:40] VITALS: BP 142/86
[2017-06-10 15:58] VITALS: BP 132/83
[2017-06-10] MEDS ORDERED: WARFARIN SODIUM-INR 2.0-3.0-RX DOSING PER PROTOCOL PO PRN (16:00)
[2017-06-10] MEDS ORDERED: SODIUM CHLORIDE 0.9% 500 ML IV ONE (16:03)
[2017-06-10] MEDS ORDERED: WARFARIN SODIUM 3 MG TABLET PO ONE (17:00)
[2017-06-10] MEDS: AZITHROMYCIN 500 MG/NS 250 ML IV SCH (17:23)
[2017-06-10 19:45] VITALS: BP 144/89
[2017-06-10 21:42] LABS: GLUCOSE,POINT OF CARE 158 MG/DL (70-110)
[2017-06-10 23:58] VITALS: BP 144/83
[2017-06-11] MEDS: IPRATROPIUM BROMIDE 0.5 MG/2.5 ML NEB SOLUTION NEB SCH ×6 (03:16→23:18)
[2017-06-11] MEDS: ALBUTEROL SULFATE 2.5 MG/0.5 ML NEB SOLUTION NEB SCH ×6 (03:16→23:18)
[2017-06-11 05:24] VITALS: BP 135/65
[2017-06-11] MEDS: MethylPREDNISolone SOD SUCC 125 MG/2 ML VIAL IVP SCH (05:33)
[2017-06-11 07:32] VITALS: BP 155/83
[2017-06-11 07:42] LABS: INR 1.8 (0.9-1.1); PROTHROMBIN TIME 18.8 SEC (9.4-11.6)
[2017-06-11 07:47] LABS: EOSINOPHILS % (AUTO) 0 % (1.0-6.0); HEMATOCRIT 38.5 % (41-53); HEMOGLOBIN 12.6 g/dL (13.5-17.5); LYMPHOCYTES # (AUTO) 0.6 K/uL (1.0-4.8); LYMPHOCYTES % (AUTO) 4.3 % (22.0-44.0); MEAN CORPUSCULAR HEMOGLOBIN 29.4 pg (26.0-34.0); MEAN CORPUSCULAR HGB CONC 32.8 G/dL (31.0-37.0); MEAN CORPUSCULAR VOLUME 90 fL (80-100); MONOCYTES # (AUTO) 0.6 K/uL (0.1-1.0); MONOCYTES % (AUTO) 4.5 % (2.0-9.0); NEUTROPHILS # (AUTO) 12.8 K/uL (1.8-7.7); PLATELET COUNT (AUTO) 208 K/uL (150-450); RED CELL DISTRIBUTION WIDTH 14.3 % (11.5-14.5); WHITE BLOOD COUNT (AUTO) 14.1 K/uL (4.5-11.0)
[2017-06-11 08:03] LABS: NEUTROPHILS % (AUTO) 91.2 % (40.0-70.0)
[2017-06-11 08:12] LABS: ANION GAP 7 mmol/L (8-16); CARBON DIOXIDE 31 mmol/L (22-29); CHLORIDE 101 mmol/L (98-107); GLOMERULAR FILTR. RATE CALC > 60 mL/min (>60); POTASSIUM 4.3 mmol/L (3.5-5.1); SODIUM SERUM 139 mmol/L (136-145); UREA NITROGEN, BLOOD 16 mg/dL (7-18)
[2017-06-11] MEDS: OXYGEN THERAPY IH SCH ×2 (08:22→23:18)
[2017-06-11] MEDS: DOCUSATE SODIUM 100 MG CAPSULE PO SCH ×2 (08:59→20:10)
[2017-06-11] MEDS: PANTOPRAZOLE SODIUM 40 MG DR TABLET PO SCH (08:59)
[2017-06-11] MEDS: METHADONE HCL 10 MG TABLET PO SCH (09:00)
[2017-06-11 11:41] VITALS: BP 144/82
[2017-06-11] MEDS: PredniSONE 20 MG TABLET PO SCH (12:21)
[2017-06-11] MEDS: MULTIVITAMINS WITH MINERALS, THERAPEUTIC TABLET PO SCH (12:21)
[2017-06-11 15:27] VITALS: BP 132/82
[2017-06-11] MEDS: AZITHROMYCIN 500 MG/NS 250 ML IV SCH (16:54)
[2017-06-11] MEDS ORDERED: WARFARIN SODIUM 3 MG TABLET PO ONE (17:00)
[2017-06-11 19:48] VITALS: BP 138/87
[2017-06-12 00:30] VITALS: BP 129/76
[2017-06-12] MEDS: ALBUTEROL SULFATE 2.5 MG/0.5 ML NEB SOLUTION NEB SCH ×3 (03:30→11:43)
[2017-06-12] MEDS: IPRATROPIUM BROMIDE 0.5 MG/2.5 ML NEB SOLUTION NEB SCH ×3 (03:30→11:43)
[2017-06-12 05:07] VITALS: BP 148/84
[2017-06-12 07:30] VITALS: BP 139/81
[2017-06-12] MEDS: PredniSONE 20 MG TABLET PO SCH (08:30)
[2017-06-12] MEDS: DOCUSATE SODIUM 100 MG CAPSULE PO SCH (08:30)
[2017-06-12] MEDS: PANTOPRAZOLE SODIUM 40 MG DR TABLET PO SCH (08:30)
[2017-06-12] MEDS: METHADONE HCL 10 MG TABLET PO SCH (08:30)
[2017-06-12] MEDS: MULTIVITAMINS WITH MINERALS, THERAPEUTIC TABLET PO SCH (08:30)
[2017-06-12 11:25] VITALS: BP 139/76
[2017-06-12] MEDS ORDERED: WARFARIN SODIUM 3 MG TABLET PO ONE (17:00)
== END 2017-06-12 14:00 | disposition home or self-care (01) | DRG 140 ==
LOC: EMS 06:47 → 5S 13:57 → 6N 06-10 11:55
PROVIDERS: ADMIT Internal Medicine; ATTEND Internal Medicine
DX: J44.1 Chronic obstructive pulmonary disease with (acute) exacerbation (principal); J96.01 Acute respiratory failure with hypoxia; I11.0 Hypertensive heart disease with heart failure; D68.59 Other primary thrombophilia; I50.9 Heart failure, unspecified; J40 Bronchitis, not specified as acute or chronic; Z90.49 Acquired absence of other specified parts of digestive tract; Z59.0 Homelessness; F19.11 Other psychoactive substance abuse, in remission; G89.4 Chronic pain syndrome
CPT/HCPCS: 82803; 82805; 82962; 93005; 94640; 94644; 99285; J0456; J1644; J2930; J7040

== ENCOUNTER 2019-12-12 05:40 | Day surgery (SDC) | payer OTHER ==
[~2019-12-12] VITALS: Ht 167.6 cm; Wt 85.6 kg
[~2019-12-12 05:40] MED LIST changes: -ALBU8.5H8 IH; -AMLO-512 PO; +AMLO10TA7 PO; +GABA-1201 PO; -GABA-533 PO; +HYDR-1475 PO; -HYDR25TA PO; -MOME13HF2 IH; -MONT10TA21 PO; -OMEP20 PO; +PRED10 PO; -PRED20 PO; -TIOT185 IH; -WARF3TAB29 PO; +WARF5TAB40 PO
[2019-12-12] MEDS ORDERED: SODIUM CHLORIDE 0.9% 1,000 ML ONE (05:45)
[2019-12-12] MEDS ORDERED: SODIUM CHLORIDE 0.9% 1,000 ML IV ONE (07:00)
[2019-12-12] MEDS ORDERED: MIDAZOLAM HCL 2 MG/2 ML VIAL ONE (07:53)
[2019-12-12] MEDS ORDERED: FentaNYL CITRATE-PF 100 MCG/2 ML VIAL ONE (07:53)
[2019-12-12] MEDS ORDERED: MethylPREDNISolone SOD SUCC 125 MG/2 ML VIAL IVP ONE (09:00)
[2019-12-12] MEDS ORDERED: MethylPREDNISolone SOD SUCC 125 MG/2 ML VIAL ONE (09:05)
[2019-12-12] MEDS ORDERED: LIDOCAINE 2% 30 ML JELLY ONE (16:59)
[2019-12-12] MEDS ORDERED: LIDOCAINE 4% 50 ML SOLUTION ONE (16:59)
[2019-12-12] MEDS ORDERED: BENZOCAINE 20% 50 MCG/SPRAY 57 GM ONE (16:59)
[2019-12-12] MEDS ORDERED: ALBUTEROL SULFATE 2.5 MG/0.5 ML NEB SOLUTION NEB ONE (16:59)
[2019-12-12] MEDS ORDERED: OXYGEN THERAPY IH SCH (20:00)
== END 2019-12-12 10:15 | disposition home or self-care (01) ==
LOC: SURGERY 05:40
PROVIDERS: ATTEND Internal Medicine Critical Care Medicine
DX: J38.4 Edema of larynx (principal); B37.0 Candidal stomatitis; J44.9 Chronic obstructive pulmonary disease, unspecified; Z87.01 Personal history of pneumonia (recurrent); F17.210 Nicotine dependence, cigarettes, uncomplicated; Z72.89 Other problems related to lifestyle; Z79.899 Other long term (current) drug therapy; Z11.59 Encounter for screening for other viral diseases
CPT/HCPCS: 31623; 31624; 71045; 87015; 87070; 87101; 87205; 87206; 87220; 87635; 88108; 88312; 93005; J2250; J2930; J3010; J7030